=== PATIENT | female | born 1995 | race African-American/Black ===

== ENCOUNTER 2020-11-10 13:27 | Outpatient (CLI) | payer OTHER, SELFPAY ==
--- NOTE | ~2020-11-10 | US_ITS ---
EXAMINATION: US OB <= 14 weeks fetus EXAM DATE: 11/10/2020 14:03 INDICATION: Threatened miscarriage. , vaginal spotting. 1st trimester. TECHNIQUE: Pelvic obstetrical transabdominal sonogram was performed by a technologist. There are mu ltiple grayscale and Doppler images available for interpretation. There are no earlier studies of th is gestation for comparison. FINDINGS: Uterus measures 10.3 x 6.6 x 7.8 cm. There is intrauterine gestation sac. pole with heart rate confirmed at 165 beats per minute, motion observed.. The 4.0 cm crown-rump length corresponds to estimated gestational age by ultrasound of 10 weeks 6 days, estimated date of [facility] ent 06/02. Yolk sac is identified. There is a thin subchorionic hypoechoic region measuring 2 mm in thickness by 2 cm in diameter. Both ovaries are identified with Doppler flow confirmed. The right m easures 4.2 x 1.4 x 3.4 cm and the left 2.7 x 1.6 x 3.2 cm. IMPRESSION: Live intrauterine gestation with small subchorionic hemorrhage. Reviewed, dictated and finalized at location B. [facility]
== END 2020-11-10 13:28 | disposition home or self-care (01) ==
LOC: ANHIMG 13:37
PROVIDERS: Visit Provider Obstetrics & Gynecology
DX: O20.0 Threatened abortion (principal); Z3A.00 Weeks of gestation of pregnancy not specified
CPT/HCPCS: 76801